=== PATIENT | female | born 1960 | race Caucasian/White ===

== ENCOUNTER → 2016-11-18 | Outpatient (CLI) | payer OTHER ==
[2016-11-18 15:06] LABS: HEMOGLOBIN 13.7 g/dl (12.0-16.0); MEAN CELL VOLUME 92.9 fl (81.0-99.0); MEAN CORPUSCULAR HGB 30.3 pg (27.0-31.0); MEAN CORPUSCULAR HGB CONC 32.6 g/dl (33.0-37.0); MEAN PLATELET VOLUME 10.5 fl (9.6-12.3); RED BLOOD COUNT 4.52 10*6/uL (4.10-5.10); RED CELL DISTRI WIDTH 13.4 % (0-14.5); WHITE BLOOD COUNT 7.8 10*3/uL (4.8-10.8)
[2016-11-18 15:10] LABS: HEMOGLOBIN A1c 5.6 % (4.8-5.6)
[2016-11-18 15:30] LABS: ALKALINE PHOSPHATASE 114 U/L (45-117); BILIRUBIN, TOTAL 0.5 mg/dl (0.2-1.0); CHOLESTEROL 155 mg/dL (<200); EST GLOM FILT AFRICAN AMERICAN > 60 ml/min; FREE T4 1.07 ng/dl (0.76-1.46); HDL CHOLESTEROL 57 mg/dl (40-60); LDL CHOLESTEROL 83 mg/dL (9-159); SGOT/AST 18 IU/L (3-35); SGPT/ALT 22 U/L (12-78); TOTAL PROTEIN 7.7 gm/dL (6.4-8.2); TRIGLYCERIDES 76 mg/dl (<150); VLDL CHOLESTEROL 15 mg/dL (6-40)
[2016-11-18 15:39] LABS: VITAMIN D, 25-HYDROXY 12.2 ng/mL (30-100)
[2016-11-18 16:06] LABS: BUN 5 mg/dl (7-24); CHLORIDE 102 mmol/L (98-107); GLUCOSE 80 mg/dL (65-99); SODIUM 137 mmol/L (136-145)
[2016-11-18 16:07] LABS: CARBON DIOXIDE 27 mmol/L (21-32)
== END | disposition home or self-care (01) ==
LOC: LAB 14:00
PROVIDERS: Family Medicine
DX: G62.9 Polyneuropathy, unspecified (principal); E78.00 Pure hypercholesterolemia, unspecified; R05 Cough; Z72.0 Tobacco use

== ENCOUNTER → 2017-04-28 | Outpatient (CLI) | payer OTHER ==
[2017-04-28 14:39] LABS: HEMATOCRIT 36.8 % (37.0-47.0); MEAN CELL VOLUME 91.3 fl (81.0-99.0); MEAN CORPUSCULAR HGB 29.8 pg (27.0-31.0); MEAN CORPUSCULAR HGB CONC 32.6 g/dl (33.0-37.0); MEAN PLATELET VOLUME 9.4 fl (9.6-12.3); RED BLOOD COUNT 4.03 10*6/uL (4.10-5.10); RED CELL DISTRI WIDTH 13.5 % (0-14.5); WHITE BLOOD COUNT 7.4 10*3/uL (4.8-10.8)
[2017-04-28 15:14] LABS: ALBUMIN 3.8 gm/dl (3.1-4.5); ALKALINE PHOSPHATASE 103 U/L (45-117); BUN 10 mg/dl (7-24); CHLORIDE 102 mmol/L (98-107); CHOLESTEROL 148 mg/dL (<200); CREATININE 0.62 mg/dL (0.55-1.02); HDL CHOLESTEROL 56 mg/dl (40-60); LDL CHOLESTEROL 80 mg/dL (9-159); POTASSIUM 3.9 mmol/L (3.5-5.1); SGOT/AST 19 IU/L (3-35); SGPT/ALT 28 U/L (12-78); SODIUM 136 mmol/L (136-145); TOTAL PROTEIN 7.4 gm/dL (6.4-8.2); TRIGLYCERIDES 61 mg/dl (<150); VLDL CHOLESTEROL 12 mg/dL (6-40)
== END | disposition home or self-care (01) ==
LOC: LAB 14:23
PROVIDERS: Family Medicine
DX: D64.9 Anemia, unspecified (principal); E55.9 Vitamin D deficiency, unspecified; E78.00 Pure hypercholesterolemia, unspecified; R63.5 Abnormal weight gain

== ENCOUNTER → 2017-06-12 | Outpatient (CLI) | payer OTHER | LOC: RAD 14:07 | DX: M21.832 Other specified acquired deformities of left forearm (principal); M25.842 Other specified joint disorders, left hand; S62.102A Fracture of unspecified carpal bone, left wrist, initial encounter for closed fracture; W19.XXXA Unspecified fall, initial encounter; Y93.89 Activity, other specified; Y92.89 Other specified places as the place of occurrence of the external cause; Y99.8 Other external cause status ==

== ENCOUNTER → 2017-07-24 | Outpatient (CLI) | payer OTHER ==
[2017-07-25 07:06] LABS: RHEUMATOID ARTHRITIS FACTOR <10.0 IU/mL (0.0-13.9)
== END | disposition home or self-care (01) ==
LOC: LAB 13:50
PROVIDERS: Family Medicine
DX: M25.50 Pain in unspecified joint (principal); M79.1 Myalgia

== ENCOUNTER 2017-09-16 10:20 | Emergency (ER) | payer OTHER ==
[~2017-09-16] VITALS: Ht 170.1 cm; Wt 90.7 kg
[2017-09-16 10:24] VITALS: BP 164/84
[2017-09-18] MEDS ORDERED: GABAPENTIN600 MG PO (10:20)
[2017-09-18] MEDS ORDERED: VITAMIN B 12 PO (10:21)
[2017-09-18] MEDS ORDERED: VITAMIN D31000 UNI1 PO (10:21)
[2017-09-18] MEDS ORDERED: NORCO 5-325 TA1 EACH PO (10:22)
[2017-09-18] MEDS ORDERED: Zofran4 MG PO (10:23)
== END 2017-09-16 11:32 | disposition home or self-care (01) ==
LOC: ED 10:20
DX: S42.332A Displaced oblique fracture of shaft of humerus, left arm, initial encounter for closed fracture (principal); M19.90 Unspecified osteoarthritis, unspecified site; W01.0XXA Fall on same level from slipping, tripping and stumbling without subsequent striking against object, initial encounter; Y93.89 Activity, other specified; Y92.090 Kitchen in other non-institutional residence as the place of occurrence of the external cause; Y99.9 Unspecified external cause status

== ENCOUNTER → 2017-09-21 | Outpatient (CLI) | payer OTHER ==
[~2017-09-21] MED LIST: GABAPENTIN600 MG PO; NORCO 5-325 TA1 EACH PO; PERCOCET 5-3251 EACH PO; VITAMIN B 12 PO; VITAMIN D31000 UNI1 PO; ZOFRAN4 MG PO; Zofran4 MG PO
[2017-09-21 13:32] LABS: BILIRUBIN NEGATIVE (NEGATIVE); BLOOD NEGATIVE (NEGATIVE); CLARITY SL CLOUDY (CLEAR); COLOR YELLOW (YELLOW); GLUCOSE NEGATIVE (NEGATIVE); KETONE NEGATIVE (NEGATIVE); LEUKO ESTERASE 1+ (NEGATIVE); NITRITE NEGATIVE (NEGATIVE); PH 7.5 (5.0-9.0)
[2017-09-21 13:42] LABS: EPITHELIAL CELLS 16-20; WBC 16-20 wbc/hpf (0-5)
== END | disposition home or self-care (01) ==
LOC: LAB 12:52
PROVIDERS: Orthopaedic Surgery
DX: N39.0 Urinary tract infection, site not specified (principal)

== ENCOUNTER → 2017-09-22 | Day surgery (SDC) | payer OTHER ==
[2017-09-18 11:58] LABS: BASO # 0.1 10*3/uL (0.0-0.1); EOS # 0.3 10*3/uL (0.0-0.4); EOS % 2.9 % (1.0-4.0); HEMATOCRIT 38.8 % (37.0-47.0); HEMOGLOBIN 12.2 g/dl (12.0-16.0); LYMPH # 1.7 10*3/uL (1.3-4.4); LYMPH % 18.2 % (27.0-41.0); MEAN CORPUSCULAR HGB 29.3 pg (27.0-31.0); MEAN CORPUSCULAR HGB CONC 31.4 g/dl (33.0-37.0); MEAN PLATELET VOLUME 10.3 fl (9.6-12.3); MONO # 0.6 10*3/uL (0.1-1.0); MONO % 5.9 % (3.0-9.0); NEUT # 6.8 10*3/uL (2.3-7.9); NEUT % 71.6 % (47.0-73.0); PLATELET COUNT AUTOMATED 314 10*3/uL (130-400); RED BLOOD COUNT 4.17 10*6/uL (4.10-5.10); RED CELL DISTRI WIDTH 13.3 % (0-14.5); WHITE BLOOD COUNT 9.6 10*3/uL (4.8-10.8)
[2017-09-18 12:03] LABS: BILIRUBIN NEGATIVE (NEGATIVE); BLOOD NEGATIVE (NEGATIVE); CLARITY SL CLOUDY (CLEAR); COLOR YELLOW (YELLOW); GLUCOSE NEGATIVE (NEGATIVE); KETONE NEGATIVE (NEGATIVE); LEUKO ESTERASE 3+ (NEGATIVE); NITRITE NEGATIVE (NEGATIVE); SPECIFIC GRAVITY <= 1.005 (1.005-1.030); UROBILINOGEN 0.2 E.U./dl (0.2-1.0)
[2017-09-18 12:13] LABS: ALBUMIN 3.6 gm/dl (3.1-4.5); ALKALINE PHOSPHATASE 117 U/L (45-117); BUN 7 mg/dl (7-24); CHLORIDE 101 mmol/L (98-107); CREATININE 0.64 mg/dL (0.55-1.02); POTASSIUM 4.4 mmol/L (3.5-5.1); SGOT/AST 18 IU/L (3-35); SGPT/ALT 26 U/L (12-78); SODIUM 137 mmol/L (136-145); TOTAL PROTEIN 7.8 gm/dL (6.4-8.2)
[2017-09-18 12:18] LABS: BACTERIA 2+; EPITHELIAL CELLS 21-30; WBC TNTC wbc/hpf (0-5)
[~2017-09-22] VITALS: Ht 170.1 cm; Wt 90.7 kg
--- NOTE | ~2017-09-22 | O ---
[place], [place] OPERATIVE NOTE NAME: RAVINDRA RAMACHANDRAN [facility] #: [id number] UNIT #: [id number] ROOM: DOCTOR: WILL SCHAEFER DO BIRTHDATE: [birth year] DOS: 09/22/2017 PREOPERATIVE DIAGNOSIS: Left humeral shaft fracture, spiral, oblique, displaced. POSTOPERATIVE DIAGNOSIS: Left humeral shaft fracture, spiral, oblique, displaced. PROCEDURE: Left humeral shaft fracture intramedullary jennifer fixation. SURGEON: Will Schaefer D.O. GEOSPATIAL ENGINEER: Primitivo. ANESTHESIA: Penelope, general endotracheal. INDICATIONS: The patient is a 57-year-old female who reports that she fell at work on 09/16/2017. She suffered a fracture of the left humeral shaft mid to distal one third. The risks and benefits of the procedure were explained to the patient preoperatively. Preoperative labs and x-rays were obtained. DESCRIPTION OF PROCEDURE: The patient was marked in the holding room on the left upper extremity. The patient was brought to the operative suite and placed supine on the operative table. A general anesthetic with endotracheal intubation was performed. The patient received Ancef 2 grams IV piggyback preoperatively. The patient was placed in a beach chair position. The C-arm was utilized to identify the fracture site. The left upper extremity was prepped and draped in the usual orthopedic fashion from the mid chest to the fingertips. A C-arm was utilized to confirm the entry points after the landmarks had been identified and marked with a marking pen. An anterior lateral approach was marked and injected with Marcaine 0.5% with epinephrine. The incision began at the anterior lateral tip of the acromion, was carried distally over the deltoid muscle. This was spread down to the level of the fascia and the deltoid fascia was divided at the level of the anterior middle one third. Self-retaining retractors were utilized to expose the entry point. The initial guidewire was placed under C-arm guidance through the longitudinal division of the supraspinatus muscle fibers. This was advanced and adjusted as needed. The hollow drill bit and soft tissue protector were placed over the initial guide jennifer. This was drilled to the depth of the medullary canal. Under C-arm guidance, the reaming jennifer with a ball tip was advanced from proximal to distal and attempted to cross the fracture site. The reduction instrumentation was utilized to aid in the positioning and the tip of the guidewire was bent. The bend was used to enter the distal portion of the canal under C-arm guidance. The guide jennifer was advanced just 1-2 cm proximal to the olecranon fossa. Under C-arm guidance, the radiographic ruler was utilized to measure the length of the MultiLoc humeral nail and a 7 mm width was chosen. This was done in order to avoid reaming of the canal. The insertion handle was attached to the 240 mm x 7 mm MultiLoc humeral nail. This was advanced through the medullary canal using manual pressure and a twisting motion. When this was positioned adequately and evaluated under C-arm, the K-wire was placed through the guide to determine the [place], [place] OPERATIVE NOTE NAME: RAMACHANDRANRAVINDRA Shubham UNIT #: [id number] ROOM: DOCTOR: WILL SCHAEFER DO BIRTHDATE: [birth year] proximal most portion of the nail, which was noted to be under the articular cartilage. The 2 proximal screws were planned using the trocar assembly through A and B screw holes. The trocar was advanced. The skin was injected with Marcaine 0.5% with epinephrine. A longitudinal incision was made proximally. The subcutaneous tissue was spread down to the bone and the trocar was advanced to the level of the bone. The trocar was removed and the drill was utilized into the proximal humerus. The length was measured and a 36 mm x 4.5 mm MultiLoc screw was advanced by hand through the trocar. The positioning was evaluated by C-arm in multiple planes and the second screw was placed in a similar fashion. The aiming arm was removed and the humeral head was evaluated, noting that the proximal end of the jennifer was deep to the articular surface. The C-arm was then utilized to create a perfect point hope ira at the distal 2 locking screw holes in the IM jennifer. Using the standard freehand technique, the drill bit was utilized to identify the hole under C-arm guidance. The skin was marked, injected and an incision was made in a longitudinal fashion. Blunt dissection was performed just beside the biceps fascia and carried to the level of the cortex. Under C-arm guidance, the hole was drilled from anterior to posterior and measured with a depth gauge. A 28 x 4 mm locking screw was placed distally from anterior to posterior under C-arm guidance. This process was repeated at the distal most locking screw. The C-arm was utilized to evaluate the proximal IM jennifer and 2 proximal locking screws, the fracture site and 2 distal locking screws in multiple planes. The incisions were copiously irrigated with normal saline and closed in a layered fashion distally with 2-0 Vicryl and skin haider. The proximal 2 screw holes with 2-0 Vicryl and skin haider in the entry point of the jennifer. The longitudinal incision in the supraspinatus was closed with 0 Tycron, followed by 2-0 Vicryl in the deltoid fascia and skin haider. All areas were injected with Marcaine 0.5% with epinephrine. Xeroform, 4 x 4s, and ABDs were used to cover the incision site. The arm was wrapped in [place] from the mid metacarpal region of the hand to the shoulder, followed by a loosely applied Slim bandage. The arm was placed in a sling. The anesthetic was reversed. The patient was returned to a supine position and extubated. The patient was taken to the recovery room in satisfactory condition. Sponge and needle count correct. ESTIMATED BLOOD LOSS: 50 mL. SPECIMENS: None. DRAINS: None. PACKING: None. IMPLANTS: Synthes 240 x 7 mm MultiLoc humeral DePuy with proximal MultiLoc screws measuring 30 mm and 36 mm x 4.5 and distal locking screws measuring 28 mm x 4 mm 2 screws each. [place], [place] OPERATIVE NOTE NAME: [facility] [id number] UNIT #: [id number] ROOM: DOCTOR: WILL SCHAEFER DO BIRTHDATE: [birth year] WILL SCHAEFER DO CM:OPRECORD:OPERATIVE NOTE [id number] WILL SCHAEFER DO 09/25/17 1748 interface
[2017-09-22 09:20] VITALS: BP 145/72
[2017-09-22 18:05] VITALS: BP 161/87
[2017-09-22 18:20] VITALS: BP 157/68
[2017-09-22 18:35] VITALS: BP 159/95
[2017-09-22 18:50] VITALS: BP 165/87
[2017-09-22 19:18] VITALS: BP 166/86
== END ==
LOC: SDC 09-18 10:15
PROVIDERS: Orthopaedic Surgery
DX: S42.342A Displaced spiral fracture of shaft of humerus, left arm, initial encounter for closed fracture (principal); Z87.891 Personal history of nicotine dependence; Z79.899 Other long term (current) drug therapy; W19.XXXA Unspecified fall, initial encounter; Y93.89 Activity, other specified; Y92.89 Other specified places as the place of occurrence of the external cause; Y99.8 Other external cause status

== ENCOUNTER → 2017-10-06 | Outpatient (CLI) | payer OTHER | END | disposition home or self-care (01) | LOC: ORTHO 01:51 | DX: Z48.02 Encounter for removal of sutures (principal); S42.342D Displaced spiral fracture of shaft of humerus, left arm, subsequent encounter for fracture with routine healing; X58.XXXD Exposure to other specified factors, subsequent encounter; Z91.81 History of falling ==

== ENCOUNTER → 2017-11-06 | Outpatient (CLI) | payer OTHER | END | disposition home or self-care (01) | LOC: ORTHO 00:32 | DX: S42.342D Displaced spiral fracture of shaft of humerus, left arm, subsequent encounter for fracture with routine healing (principal); X58.XXXD Exposure to other specified factors, subsequent encounter; Z91.81 History of falling ==

== ENCOUNTER → 2017-11-18 | Outpatient (CLI) | payer OTHER | END | disposition home or self-care (01) | LOC: RAD 10:49 | DX: M51.86 Other intervertebral disc disorders, lumbar region (principal) ==

== ENCOUNTER → 2017-12-07 | Outpatient (CLI) | payer OTHER | END | disposition home or self-care (01) | LOC: ORTHO 02:40 | DX: S42.392D Other fracture of shaft of left humerus, subsequent encounter for fracture with routine healing (principal); X58.XXXD Exposure to other specified factors, subsequent encounter ==

== ENCOUNTER → 2018-08-02 | Outpatient (CLI) | payer OTHER ==
[~2018-08-02] MED LIST changes: +BACITRACIN-NEO0.9 GM PO; +CEPHALEXIN500 M1 PO
== END | disposition home or self-care (01) ==
DX: S42.342D Displaced spiral fracture of shaft of humerus, left arm, subsequent encounter for fracture with routine healing (principal); M25.522 Pain in left elbow; X58.XXXD Exposure to other specified factors, subsequent encounter

== ENCOUNTER → 2019-04-04 | Outpatient (CLI) | payer OTHER ==
[2019-04-04 08:57] LABS: HEMATOCRIT 40.9 % (37.0-47.0); HEMOGLOBIN 12.5 g/dl (12.0-16.0); MEAN CELL VOLUME 83.1 fl (81.0-99.0); MEAN CORPUSCULAR HGB 25.4 pg (27.0-31.0); MEAN CORPUSCULAR HGB CONC 30.6 g/dl (33.0-37.0); MEAN PLATELET VOLUME 10.3 fl (9.6-12.3); RED BLOOD COUNT 4.92 10*6/uL (4.10-5.10); RED CELL DISTRI WIDTH 15.1 % (0-14.5)
[2019-04-04 09:25] LABS: ALBUMIN 3.8 gm/dl (3.1-4.5); ALKALINE PHOSPHATASE 157 U/L (45-117); BUN 17 mg/dl (7-24); CHLORIDE 107 mmol/L (98-107); CHOLESTEROL 148 mg/dL (<200); CREATININE 0.78 mg/dL (0.55-1.02); HDL CHOLESTEROL 46 mg/dl (40-60); LDL CHOLESTEROL 89 mg/dL (9-159); SGOT/AST 23 IU/L (3-35); SGPT/ALT 35 U/L (12-78); SODIUM 138 mmol/L (136-145); TOTAL PROTEIN 8.4 gm/dL (6.4-8.2); TRIGLYCERIDES 64 mg/dl (<150); VLDL CHOLESTEROL 13 mg/dL (6-40)
[2019-04-04 10:50] LABS: VITAMIN D, 25-HYDROXY 25.8 ng/mL (30-100)
== END | disposition home or self-care (01) ==
LOC: LAB 08:25
PROVIDERS: Family Medicine
DX: E53.8 Deficiency of other specified B group vitamins (principal); E55.9 Vitamin D deficiency, unspecified; R53.83 Other fatigue; R60.9 Edema, unspecified

== ENCOUNTER → 2019-04-25 | Outpatient (CLI) | payer OTHER ==
[2019-04-26 12:07] LABS: TOTAL PROTEIN, SERUM 6.8 g/dL (6.0-8.5)
[2019-04-26 15:06] LABS: A/G RATIO 0.9 (0.7-1.7); ALBUMIN 3.3 g/dL (2.9-4.4); ALPHA-1-GLOBULIN 0.2 g/dL (0.0-0.4); ALPHA-2-GLOBULIN 0.9 g/dL (0.4-1.0); BETA GLOBULIN 1.3 g/dL (0.7-1.3); GAMMA GLOBULIN 1.2 g/dL (0.4-1.8); GLOBULIN, TOTAL 3.5 g/dL (2.2-3.9); M-SPIKE Not Observed g/dL (Not Observed)
== END | disposition home or self-care (01) ==
LOC: LAB 09:05
PROVIDERS: Family Medicine
DX: R79.89 Other specified abnormal findings of blood chemistry (principal)

== ENCOUNTER → 2019-04-27 | Outpatient (CLI) | payer OTHER ==
[2019-04-29 13:05] LABS: ALBUMIN, URINE 60.4 % (.); ALPHA-1-GLOBULIN, URINE 2.7 % (.); ALPHA-2-GLOBULIN, URINE 6.2 % (.); BETA GLOBULIN, URINE 7.3 % (.); GAMMA GLOBULIN, URINE 23.5 % (.); M-SPIKE, % Not Observed % (Not Observed)
== END | disposition home or self-care (01) ==
LOC: LAB 10:12
PROVIDERS: Nurse Practitioner Family
DX: R77.9 Abnormality of plasma protein, unspecified (principal)

== ENCOUNTER → 2019-07-05 | Outpatient (CLI) | payer OTHER ==
[2019-07-05 11:48] LABS: HEMATOCRIT 39.9 % (37.0-47.0); HEMOGLOBIN 11.8 g/dl (12.0-16.0); MEAN CORPUSCULAR HGB 24.5 pg (27.0-31.0); MEAN CORPUSCULAR HGB CONC 29.6 g/dl (33.0-37.0); MEAN PLATELET VOLUME 11.2 fl (9.6-12.3); RED BLOOD COUNT 4.81 10*6/uL (4.10-5.10); RED CELL DISTRI WIDTH 15.3 % (0-14.5); WHITE BLOOD COUNT 6.5 10*3/uL (4.8-10.8)
[2019-07-05 12:05] LABS: ALBUMIN 3.6 gm/dl (3.1-4.5); ALKALINE PHOSPHATASE 148 U/L (45-117); BUN 26 mg/dl (7-24); CHLORIDE 109 mmol/L (98-107); POTASSIUM 4.1 mmol/L (3.5-5.1); SODIUM 142 mmol/L (136-145)
[2019-07-05 12:06] LABS: CREATININE 0.86 mg/dL (0.55-1.02); SGOT/AST 19 IU/L (3-35); SGPT/ALT 30 U/L (12-78)
[2019-07-05 12:40] LABS: VITAMIN D, 25-HYDROXY 60.6 ng/mL (30-100)
== END | disposition home or self-care (01) ==
LOC: LAB 10:21
PROVIDERS: Nurse Practitioner Family
DX: E74.9 Disorder of carbohydrate metabolism, unspecified (principal); E55.9 Vitamin D deficiency, unspecified; E53.9 Vitamin B deficiency, unspecified; R73.9 Hyperglycemia, unspecified

== ENCOUNTER → 2019-08-15 | Outpatient (CLI) | payer OTHER | END | disposition home or self-care (01) | LOC: ORTHO 00:58 | DX: S42.342D Displaced spiral fracture of shaft of humerus, left arm, subsequent encounter for fracture with routine healing (principal); M19.012 Primary osteoarthritis, left shoulder; X58.XXXD Exposure to other specified factors, subsequent encounter ==

== ENCOUNTER → 2019-09-29 | Outpatient (CLI) | payer OTHER | END | disposition home or self-care (01) | LOC: NM 10:00 | DX: G89.29 Other chronic pain (principal) ==

== ENCOUNTER → 2019-12-26 | Outpatient (CLI) | payer OTHER | END | disposition home or self-care (01) | LOC: US 11:19 | DX: I73.9 Peripheral vascular disease, unspecified (principal); I10 Essential (primary) hypertension; E11.9 Type 2 diabetes mellitus without complications ==

== ENCOUNTER → 2020-06-14 | Outpatient (CLI) | payer OTHER, MEDICAID | END | disposition home or self-care (01) | LOC: RAD 10:19 | PROVIDERS: ATTEND Family Medicine | DX: M17.0 Bilateral primary osteoarthritis of knee (principal) ==

== ENCOUNTER → 2020-07-25 | Outpatient (CLI) | payer OTHER, MEDICAID | END | disposition home or self-care (01) | LOC: RAD 11:30 | PROVIDERS: ATTEND General Practice | DX: G95.20 Unspecified cord compression (principal); M51.36 Other intervertebral disc degeneration, lumbar region; M47.816 Spondylosis without myelopathy or radiculopathy, lumbar region ==

== ENCOUNTER → 2020-07-30 | Outpatient (CLI) | payer OTHER, MEDICAID | END | disposition home or self-care (01) | LOC: US 15:13 | PROVIDERS: ATTEND Family Medicine | DX: M79.89 Other specified soft tissue disorders (principal); R60.0 Localized edema ==

== ENCOUNTER → 2020-08-14 | Outpatient (CLI) | payer OTHER, MEDICAID | END | disposition home or self-care (01) | LOC: RAD 10:02 | PROVIDERS: ATTEND Family Medicine | DX: M16.0 Bilateral primary osteoarthritis of hip (principal) ==

== ENCOUNTER → 2020-08-24 | Outpatient (CLI) | payer OTHER, MEDICAID | END | disposition home or self-care (01) | LOC: MRI 07:32 | PROVIDERS: ATTEND General Practice | DX: M47.816 Spondylosis without myelopathy or radiculopathy, lumbar region (principal); M51.36 Other intervertebral disc degeneration, lumbar region ==

== ENCOUNTER → 2021-01-31 | Outpatient (CLI) | payer OTHER, MEDICAID ==
[2021-01-31 15:55] LABS: HEMATOCRIT 40.8 % (37.0-47.0); MEAN CELL VOLUME 88.5 fl (81.0-99.0); MEAN CORPUSCULAR HGB 27.3 pg (27.0-31.0); MEAN CORPUSCULAR HGB CONC 30.9 g/dl (33.0-37.0); MEAN PLATELET VOLUME 9.8 fl (9.6-12.3); RED BLOOD COUNT 4.61 10*6/uL (4.10-5.10); WHITE BLOOD COUNT 8.4 10*3/uL (4.8-10.8)
[2021-01-31 16:23] LABS: ALBUMIN 3.6 gm/dl (3.1-4.5); ALKALINE PHOSPHATASE 142 U/L (45-117); BUN 16 mg/dl (7-24); CHLORIDE 108 mmol/L (98-107); CHOLESTEROL 142 mg/dL (<200); CREATININE 0.83 mg/dL (0.55-1.02); POTASSIUM 4.4 mmol/L (3.5-5.1); SGOT/AST 23 IU/L (3-35); SGPT/ALT 49 U/L (12-78); SODIUM 139 mmol/L (136-145); TOTAL PROTEIN 7.6 gm/dL (6.4-8.2); TRIGLYCERIDES 102 mg/dl (<150)
[2021-01-31 16:29] LABS: FREE T4 0.96 ng/dl (0.76-1.46); LDL CHOLESTEROL 72 mg/dL (9-159)
[2021-01-31 16:45] LABS: VITAMIN D, 25-HYDROXY 60.7 ng/mL (30-100)
== END | disposition home or self-care (01) ==
LOC: LAB 15:25
PROVIDERS: ATTEND Family Medicine
DX: I10 Essential (primary) hypertension (principal); E55.9 Vitamin D deficiency, unspecified; F41.1 Generalized anxiety disorder; E74.00 Glycogen storage disease, unspecified; R53.83 Other fatigue; R60.0 Localized edema

== ENCOUNTER → 2021-03-29 | Outpatient (CLI) | payer OTHER, MEDICAID ==
[2021-03-29 12:24] LABS: HEMATOCRIT 36.7 % (37.0-47.0); MEAN CELL VOLUME 85.3 fl (81.0-99.0); MEAN CORPUSCULAR HGB 25.8 pg (27.0-31.0); MEAN CORPUSCULAR HGB CONC 30.2 g/dl (33.0-37.0); MEAN PLATELET VOLUME 10.1 fl (9.6-12.3); RED BLOOD COUNT 4.3 10*6/uL (4.10-5.10); RED CELL DISTRI WIDTH 15.1 % (0-14.5)
[2021-03-29 12:48] LABS: ALBUMIN 3.2 gm/dl (3.1-4.5); ALKALINE PHOSPHATASE 194 U/L (45-117); BUN 24 mg/dl (7-24); CHLORIDE 105 mmol/L (98-107); CREATININE 0.97 mg/dL (0.55-1.02); POTASSIUM 4.1 mmol/L (3.5-5.1); SGOT/AST 37 IU/L (3-35); SGPT/ALT 45 U/L (12-78); SODIUM 139 mmol/L (136-145); TOTAL PROTEIN 7.8 gm/dL (6.4-8.2)
== END | disposition home or self-care (01) ==
LOC: LAB 12:09
PROVIDERS: ATTEND Family Medicine
DX: M43.27 Fusion of spine, lumbosacral region (principal); R60.0 Localized edema; M54.5 Low back pain

== ENCOUNTER → 2021-10-26 | Outpatient (CLI) | payer OTHER, MEDICAID | END | disposition home or self-care (01) | LOC: RAD 12:45 | PROVIDERS: ATTEND Family Medicine | DX: M51.37 Other intervertebral disc degeneration, lumbosacral region (principal); M85.88 Other specified disorders of bone density and structure, other site ==

== ENCOUNTER → 2022-07-16 | Outpatient (CLI) | payer MEDICARE, MEDICAID ==
[2022-07-16 12:38] LABS: HEMATOCRIT 42.3 % (37.0-47.0); MEAN CELL VOLUME 87.9 fl (81.0-99.0); MEAN CORPUSCULAR HGB 27.4 pg (27.0-31.0); MEAN CORPUSCULAR HGB CONC 31.2 g/dl (33.0-37.0); MEAN PLATELET VOLUME 10.2 fl (9.6-12.3); RED BLOOD COUNT 4.81 10*6/uL (4.10-5.10); RED CELL DISTRI WIDTH 14.7 % (0-14.5); WHITE BLOOD COUNT 6.7 10*3/uL (4.8-10.8)
[2022-07-16 13:04] LABS: ALKALINE PHOSPHATASE 180 U/L (46-116); BUN 9 mg/dl (9-23); CHLORIDE 102 mmol/L (98-107); CHOLESTEROL 132 mg/dL (<200); CREATININE 0.65 mg/dL (0.55-1.02); LDL CHOLESTEROL 76 mg/dL (9-159); POTASSIUM 3.8 mmol/L (3.4-5.1); SGPT/ALT 14 U/L (10-49); SODIUM 136 mmol/L (136-145); TOTAL PROTEIN 7.8 gm/dL (6.0-8.0); TRIGLYCERIDES 69 mg/dl (<150)
== END | disposition home or self-care (01) ==
LOC: LAB 11:56
PROVIDERS: ATTEND Family Medicine
DX: I10 Essential (primary) hypertension (principal); E55.9 Vitamin D deficiency, unspecified; E74.9 Disorder of carbohydrate metabolism, unspecified; R60.0 Localized edema; E87.6 Hypokalemia; Z79.899 Other long term (current) drug therapy

== ENCOUNTER → 2023-07-29 | Outpatient (CLI) | payer OTHER, MEDICAID | END | disposition home or self-care (01) | LOC: RAD 12:09 | PROVIDERS: ATTEND Family Medicine | DX: R05.9 Cough, unspecified (principal); R07.9 Chest pain, unspecified ==

== ENCOUNTER → 2023-09-25 | Outpatient (CLI) | payer OTHER, MEDICAID | END | disposition home or self-care (01) | LOC: RAD 12:40 | PROVIDERS: ATTEND Family Medicine | DX: M16.0 Bilateral primary osteoarthritis of hip (principal) ==

== ENCOUNTER 2024-01-15 20:23 | Emergency (ER) | payer OTHER, MEDICAID ==
[~2024-01-15] VITALS: Ht 170.1 cm; Wt 124.7 kg
[2024-01-15 20:30] VITALS: BP 132/60
[2024-01-15] MEDS ORDERED: CIPROFLOXACIN2.5 M1 OPH (21:10)
== END 2024-01-15 21:21 | disposition home or self-care (01) ==
LOC: ED 20:23
DX: H10.9 Unspecified conjunctivitis (principal); Z88.8 Allergy status to other drugs, medicaments and biological substances

== ENCOUNTER → 2024-02-23 | Outpatient (CLI) | payer OTHER, MEDICAID ==
[~2024-02-23] MED LIST changes: +CIPROFLOXACIN2.5 M1 OPH
[2024-02-23 10:12] LABS: HEMATOCRIT 45.1 % (37.0-47.0); MEAN CELL VOLUME 90.4 fl (81.0-99.0); MEAN CORPUSCULAR HGB 26.9 pg (27.0-31.0); MEAN CORPUSCULAR HGB CONC 29.7 g/dl (33.0-37.0); MEAN PLATELET VOLUME 10.5 fl (9.6-12.3); RED BLOOD COUNT 4.99 10*6/uL (4.10-5.10); RED CELL DISTRI WIDTH 15.4 % (0-14.5); WHITE BLOOD COUNT 8.3 10*3/uL (4.8-10.8)
[2024-02-23 10:34] LABS: ALKALINE PHOSPHATASE 175 U/L (46-116); BUN 23 mg/dl (9-23); CHLORIDE 102 mmol/L (98-107); CHOLESTEROL 112 mg/dL (<200); LDL CHOLESTEROL 64 mg/dL (9-159); POTASSIUM 3.9 mmol/L (3.4-5.1); TOTAL PROTEIN 7.9 gm/dL (6.0-8.0); TRIGLYCERIDES 44 mg/dl (<150)
[2024-02-23 10:35] LABS: SGPT/ALT < 7 U/L (5-49)
[2024-02-23 10:54] LABS: VITAMIN D, 25-HYDROXY 36.4 ng/mL (30-100)
== END | disposition home or self-care (01) ==
LOC: LAB 09:36
PROVIDERS: ATTEND Family Medicine
DX: I10 Essential (primary) hypertension (principal); E78.00 Pure hypercholesterolemia, unspecified; E74.9 Disorder of carbohydrate metabolism, unspecified; E55.9 Vitamin D deficiency, unspecified; L03.116 Cellulitis of left lower limb; Z79.899 Other long term (current) drug therapy

== ENCOUNTER → 2025-01-12 | Outpatient (CLI) | payer OTHER, MEDICAID ==
[2025-01-12 13:38] LABS: HEMATOCRIT 41.1 % (37.0-47.0); MEAN CORPUSCULAR HGB 26.8 pg (27.0-31.0); MEAN CORPUSCULAR HGB CONC 30.2 g/dl (33.0-37.0); MEAN PLATELET VOLUME 10.5 fl (9.6-12.3); RED BLOOD COUNT 4.62 10*6/uL (4.10-5.10); RED CELL DISTRI WIDTH 15.7 % (0-14.5)
[2025-01-12 14:05] LABS: ALKALINE PHOSPHATASE 215 U/L (46-116); BUN 14 mg/dl (9-23); CHLORIDE 104 mmol/L (98-107); CHOLESTEROL 126 mg/dL (<200); LDL CHOLESTEROL 70 mg/dL (9-159); POTASSIUM 3.7 mmol/L (3.4-5.1); TOTAL PROTEIN 7.3 gm/dL (6.0-8.0); TRIGLYCERIDES 73 mg/dl (<150)
[2025-01-12 14:07] LABS: SGPT/ALT < 7 U/L (5-49)
[2025-01-12 14:10] LABS: VITAMIN D, 25-HYDROXY 41.5 ng/mL (30-100)
== END | disposition home or self-care (01) ==
LOC: LAB 12:52
PROVIDERS: ATTEND Family Medicine
DX: E78.00 Pure hypercholesterolemia, unspecified (principal); I11.0 Hypertensive heart disease with heart failure; E55.9 Vitamin D deficiency, unspecified; E11.9 Type 2 diabetes mellitus without complications; R53.83 Other fatigue; I50.9 Heart failure, unspecified; I63.9 Cerebral infarction, unspecified